=== PATIENT | female | born 1975 | race Caucasian/White ===

== ENCOUNTER 2017-05-19 12:08 | Emergency (ER) | payer BC ==
[2017-05-19] MEDS ORDERED: ONDANSETRON 4 MG/2 ML VIAL IVP ONE (12:27)
[2017-05-19] MEDS ORDERED: HYDROmorphONE/DILAUDID 1 MG/ML SYR IVP ONE ×2 (12:27→13:57)
[2017-05-19] MEDS ORDERED: ONDANSETRON 4 MG/2 ML VIAL ONE (12:28)
[2017-05-19] MEDS ORDERED: HYDROmorphONE/DILAUDID 1 MG/ML SYR ONE (12:28)
--- NOTE | 2017-05-19 12:31 | EDPHY ---
H & P Time Seen by Provider: 05/19/17 12:15 HPI/ROS: CHIEF COMPLAINT: Left knee pain HISTORY OF PRESENT ILLNESS: This is a 41-year-old female presenting to the emergency department via EMS complaining severe left knee pain after falling while playing soccer 1 hour prior to arrival, Patient crying. 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 Patient states increased pain with weight-bearing and range of motion. Denies any other injuries REVIEW OF SYSTEMS: Constitutional: No fever, no chills. Eyes: No discharge. No blurred vision ENT: No sore throat. Cardiovascular: No chest pain, no palpitations. Respiratory: No cough, no shortness of breath. Gastrointestinal: No abdominal pain, no vomiting. Musculoskeletal: No back pain. Left knee pain Skin: No rashes. Neurological: No headache. Smoking Status: Never smoked Physical Exam: General Appearance: Alert and no distress. Tearful HEENT: Normocephalic atraumatic. Pupils equal and round no injection. Respiratory: Chest is nontender, lungs are clear to auscultation. Cardiac: regular rate and rhythm Gastrointestinal: Abdomen is soft and nontender, no masses, bowel sounds normal. Musculoskeletal: Vertebral cervical spine nontender on palpation. Full range of motion Extremities: Left knee swelling noted, decreased range of motion due to pain. No obvious deformity, no abrasions no laceration. Positive CMS intact Skin: No rashes or lesions. Constitutional: Initial Vital Signs Temperature (C) 37 C 05/19/17 12:18 Heart Rate 81 05/19/17 12:18 Respiratory Rate 18 05/19/17 12:18 Blood Pressure 141/77 H 05/19/17 12:18 O2 Sat (%) 97 05/19/17 12:18 O2 Delivery Mode Room Air Allergies/Adverse Reactions: acetaminophen [From Percocet] Allergy (Verified 05/19/17 12:18) ceftriaxone [From Rocephin] Allergy (Verified 05/19/17 12:18) codeine Allergy (Verified 05/19/17 12:18) oxycodone [From Percocet] Allergy (Verified 05/19/17 12:18) promethazine [From Phenergan] Allergy (Verified 05/19/17 12:18) Home Medications: Medication Instructions Recorded Ibuprofen 400 mg PO Q6-8PRN PRN #60 tablet 05/19/17 Ibuprofen 800 mg PO Q6-8PRN PRN #60 tablet 05/19/17 Zomig 05/19/17 Medical Decision Making - Diagnostics Imaging Results: Imaging Impressions Knee X-Ray 05/19/17 12:27 Impression: Negative left knee radiographs. ED Course/Re-evaluation: Discussed ED plan of care: X-ray of left knee. Pain medication 1315: Re-evaluation--> patient reports decrease in knee pain" as long as I am not moving my knee" 1330: Discussed x-ray results with patient no fracture no dislocation no joint effusion. Discussed plan knee immobilizer with crutches 1400: Discharge home---> stable, discussed all discharge instructions with patient Differential Diagnosis: Other differential diagnosis considered but not limited to patellar fracture, patellar dislocation, ligamentous injury, and joint effusion - Data Points Medications Given: Discontinued Medications Hydromorphone HCl (Dilaudid) 1 mg IVP EDNOW ONE Stop: 05/19/17 12:28 Last Admin: 05/19/17 12:34 Dose: 1 mg Hydromorphone HCl (Dilaudid) 1 mg IVP EDNOW ONE Stop: 05/19/17 13:58 Last Admin: 05/19/17 14:21 Dose: 1 mg Ketorolac Tromethamine (Toradol) 30 mg IVP EDNOW ONE Stop: 05/19/17 12:57 Last Admin: 05/19/17 13:04 Dose: 30 mg Ondansetron HCl (Zofran) 4 mg IVP EDNOW ONE Stop: 05/19/17 12:28 Last Admin: 05/19/17 12:34 Dose: 4 mg Departure - Departure Disposition: Home, Routine, Self-Care Clinical Impression: Left knee sprain Qualifiers: Encounter type: initial encounter Involved ligament of knee: unspecified ligament Qualified Code(s): S83.92XA - Sprain of unspecified site of left knee, initial encounter Injury of knee, ligament Qualifiers: Encounter type: initial encounter Laterality: left Qualified Code(s): S89.92XA - Unspecified injury of left lower leg, initial encounter Condition: Good Instructions: Knee Sprain (ED), Knee Immobilizer (ED) Additional Instructions: 1. I would recommend wearing knee brace when you are up with movement, use crutches as needed for the 1st couple of days then weight-bearing as tolerated 2. If after 7-10 days you are still having increased pain I would recommend an MRI to rule out any ligamentous tear 3. Ibuprofen 600 mg every 6-8 hours as needed. Elevated as needed. Ice as needed for any swelling Referrals: Patient,NotPresent [Unknown] - As per Instructions Prescriptions: Ibuprofen 400 mg PO Q6-8PRN PRN #60 tablet PRN Reason: Pain, Moderate Able To Take Po Ibuprofen 800 mg PO Q6-8PRN PRN #60 tablet PRN Reason: Pain, Moderate Able To Take Po
[2017-05-19] MEDS ORDERED: KETOROLAC 30 MG/1 ML SDV IVP ONE (12:56)
[2017-05-19 14:56] VITALS: BP 138/72; PULSE 78; RESP 16; O2SAT 98
[2017-05-19 14:57] VITALS: TEMP 97.7
== END 2017-05-19 14:57 | disposition home or self-care (01) ==
DX: S83.92XA Sprain of unspecified site of left knee, initial encounter (principal); W18.39XA Other fall on same level, initial encounter; Y99.8 Other external cause status; Y93.66 Activity, soccer
CPT/HCPCS: 96374; J1170; J1885; J2405; L1830